=== PATIENT | male | born 1960 | race Caucasian/White ===

== ENCOUNTER 2024-10-21 12:23 | Emergency (ER) | payer OTHER, SELFPAY ==
--- NOTE | 2024-10-21 12:26 | ED.SKABFB ---
HPI - Skin/Abscess/Foreign Bdy General Chief complaint: Skin/Abscess/Foreign Body Stated complaint: RT Hand Splinter Time Seen by Provider: 10/21/24 12:26 Source: patient Mode of arrival: ambulatory Limitations: no limitations History of Present Illness HPI narrative: Giuseppe is a 63-year-old male patient presenting to the clinic today with complaints of a splinter under his right to 4th fingernail. He reports he was fixing a door at his mother's house when he got a wood splinter underneath his right 4th fingernail. Is having pain and discomfort this happened just prior to arrival. States tetanus shot is up-to-date within last 5 years. Related Data Allergies Allergy/AdvReac Type Severity Reaction Status Date / Time No Known Allergies Allergy Verified 10/21/24 12:31 Review of Systems Review of Systems: Pertinent positives per HPI. Patient denies any fever, chills, rash, headache, visual changes, dizziness, cough, runny nose, sore throat, shortness of breath, chest pain, palpitations, nausea, vomiting, diarrhea, constipation, abdominal pain, or any urinary issues. PMFSH Surgical History Surgical History History of tympanoplasty History of orchiectomy Family History Family History Father Hypertension Mother Hypertension Social History Social History Smoking status: Never smoker Second hand tobacco smoke exposure: No Alcohol intake: current Substance use: never Substance use type: does not use Living arrangements: with family Occupation/Education: occupation Gender identity (if verbalized by the patient): Male Comments At the time of my signature, I reviewed and agree with the nursing past medical, surgical, social, and family history. There is no relevant family history pertinent to the patient complaint. Exam Narrative: General: Well-developed, well nourished, in no apparent distress Head: Normocephalic, atraumatic. Cardio: Regular rate and rhythm, s1 and s2 normal, no murmur appreciated. Resp: Clear to auscultation bilaterally, no rhonchi, rales, wheezing or rubs. Integumentary: [place], warm, and dry, wood splinter underneath the right 4th fingernail. Bleeding controlled Course Course Emergency Course: Portions of this record may have been created with voice recognition software. Level of Care: Express Care Visit Vital Signs Vital signs: Vital Signs Temperature 36.6 C 10/21/24 12:38 Pulse Rate 62 10/21/24 12:38 Respiratory Rate 18 10/21/24 12:38 Blood Pressure 168/81 H 10/21/24 12:38 Pulse Oximetry 99 10/21/24 12:38 Oxygen Delivery Room Air 10/21/24 12:38 Temperature 36.6 C 10/21/24 12:38 Pulse Rate 62 10/21/24 12:38 Respiratory Rate 18 10/21/24 12:38 Blood Pressure 168/81 H 10/21/24 12:38 Pulse Oximetry 99 10/21/24 12:38 Oxygen Delivery Room Air 10/21/24 12:38 Vital signs reviewed Procedures Foreign Body Removal Foreign Body #1: Foreign Body Removal Date: 10/21/24 Time Out Performed: yes Site: right Description of foreign body: other (Wooden splinter) Sedation/Analgesia: none Technique: removal with forceps and other (Cut partial fingernail with iris scissors to assist with removal) Confirmed by:: direct visualization Complications: none Post-procedure exam: awake, alert, normal BP, normal HR and normal O2 sat Neurovascular: no change from pre-procedure Foreign Body Removal Narrative: Consent for foreign body removal from the right 4th finger was obtained. Area was cleansed with antiseptic wound wash. 3 mL of lidocaine without epi was injected into the base of the PIP joint to offer digital block. A pair of iris scissors was then used to cut partially down the side of the fingernail to allow for removal of splinter. Wood splinter was then removed using splinter forceps. Patient tolerated procedure well. Triple antibiotic ointment and Band-Aid was applied MDM - Skin/Abscess/Foreign Bdy MDM Narrative Medical decision making narrative: At the time of visit patient is resting comfortably on the exam table. Patient appears to be nontoxic. Procedures: Consent for Foreign body removal from the right 4th finger was obtained. Area was cleansed with antiseptic wound wash. 3 mL of lidocaine without epi was injected into the base of the PIP joint to offer digital block. A pair of iris scissors was then used to cut partially down the side of the fingernail to allow for removal of splinter. Wood splinter was then removed using splinter forceps. Patient tolerated procedure well. Triple antibiotic ointment and Band-Aid was applied Plan: Patient had a wood splinter underneath the right 4th fingernail. This was removed in the clinic today successfully. Will cover patient for secondary infection and give him prescription for cephalexin. Tetanus is up-to-date per patient. Supportive measures were discussed with the patient and they voiced understanding discharge instructions and agrees to treatment plan. Return precautions reviewed Differential Diagnosis Differential diagnosis: Likely abscess of skin or subcutaneous tissue, cellulitis and other (Foreign body in skin) Discharge Plan Discharge Clinical Impression: Wood splinter under fingernail Patient Disposition: Home, Self-Care Condition: Stable Instructions: Antibiotic Form, Puncture Wound (ED) Additional Instructions: Splinter was removed successfully in the clinic today. Take Keflex as prescribed Keep clean and dry May need to keep covered with a Band-Aid until your finger nail grows out so it will not get snagged May apply triple antibiotic ointment twice daily times 48 hours Follow-up with your primary care doctor as needed Patient Language: Turkish Prescriptions: New cephalexin 500 mg capsule 500 mg PO Q12H 7 Days Qty: 14 0RF No Action fluticasone propionate 50 mcg/actuation spray,suspension See Rx Instructions .ROUTE .COMPLEX Qty: 16 3RF Dose Instruction: USE 1 SPRAY IN EACH NOSTRIL DAILY Rx Instructions: USE 1 SPRAY IN EACH NOSTRIL DAILY pantoprazole 40 mg tablet,delayed release (DR/EC) See Rx Instructions .ROUTE .COMPLEX Qty: 90 2RF Dose Instruction: TAKE 1 TABLET BY MOUTH IN THE MORNING Rx Instructions: TAKE 1 TABLET BY MOUTH IN THE MORNING scopolamine base 1 mg over 3 days patch 3 day 1 patch TRANSDERM Q72H Qty: 4 0RF Follow-up/Referrals: Randy Carpenter MD [Primary Care Provider] - Time of Disposition: 12:59 Quality NIHSS Nursing Documentation ED NIHSS nursing documentation: reviewed/agree
[2024-10-21 12:38] VITALS: BP 168/81; PULSE 62; RESP 18; TEMP 36.6; O2SAT 99
== END 2024-10-21 13:03 | disposition home or self-care (01) ==
PROVIDERS: Emergency Provider Nurse Practitioner Family; PCP Family Medicine
DX: S60.454A Superficial foreign body of right ring finger, initial encounter (principal); W45.8XXA Other foreign body or object entering through skin, initial encounter
CPT/HCPCS: 99213; G0463